=== PATIENT | male | born 1995 | race African-American/Black ===

== ENCOUNTER 2023-08-18 09:23 | Outpatient (OUT) | payer OTHER, SELFPAY ==
--- NOTE | 2023-08-18 | XR_ITS ---
The [address] [address] Patient Name: CRISTINE ROGER MRN: [id number] date: 1995 Sex: M Assigned Patient Location: Current Patient Location: Accession/Order Number: [id number] Exam Date: 08/18/2023 09:55 Report Date: 08/19/2023 07:03 At the request of: KYLER BLACKWELL Procedure: XR lumbar spine min 4V EXAMINATION: XR lumbar spine min 4V HISTORY: LUMBAR PAIN COMPARISON: No relevant comparison available. FINDINGS: BONES: No significant spondylosis, scoliosis, fracture, or visible bony lesion. No change in alignment during flexion and extension. DISC SPACES: Slight narrowing L5-S1. PARASPINOUS: Negative. No paraspinous abnormality is seen. OTHER: Negative. XR/XR lumbar spine min 4V IMPRESSION: 1. L5-S1 mild disc space narrowing. Otherwise unremarkable lumbar spine. Electronically authenticated by: NAVEEN MACKEY Date: 08/19/2023 07:03
== END 2023-08-18 09:24 | disposition home or self-care (01) ==
PROVIDERS: Visit Provider Orthopaedic Surgery Orthopaedic Surgery of the Spine
DX: M54.50 Low back pain, unspecified (principal)
CPT/HCPCS: 72110